=== PATIENT | female | born 1990 | race Hispanic/Latino ===

== ENCOUNTER 2024-05-25 10:34 | Day surgery (SDC) | payer MEDICAID, OTHER ==
[~2024-05-25] VITALS: Ht 165.1 cm; Wt 81.2 kg
[2024-05-25] VITALS (10 sets, daily range): BP systolic 108–116; BP diastolic 59–73; PULSE 71–80; RESP 14–17; TEMP 96.6–97.9
[~2024-05-25 10:34] MED LIST: AMOX1TAB16 PO; CYCL-309 PO; TRINTELLIX PO
[2024-05-25] MEDS: 0.9%NACL 1000ML 1,000 ML IV ONE (11:49)
[2024-05-25] MEDS ORDERED: proPOFol 10 MG/ML 20ML VIAL IV ONE ×2 (13:43→14:01)
== END 2024-05-25 15:15 | disposition home or self-care (01) ==
LOC: DAH 10:34
PROVIDERS: ATTEND Surgery
DX: K30 Functional dyspepsia (principal); K31.89 Other diseases of stomach and duodenum; K21.9 Gastro-esophageal reflux disease without esophagitis; K22.89 Other specified disease of esophagus; E66.01 Morbid (severe) obesity due to excess calories; E03.9 Hypothyroidism, unspecified; K76.0 Fatty (change of) liver, not elsewhere classified; Z98.84 Bariatric surgery status; Z90.49 Acquired absence of other specified parts of digestive tract; Z98.0 Intestinal bypass and anastomosis status; Z79.899 Other long term (current) drug therapy; Z98.890 Other specified postprocedural states
CPT/HCPCS: 81025; 43239; J7030; J3490 ×2; A4620; A4215 ×2; A4223; A4222; A4221; A4663; A4606; J2704

== ENCOUNTER 2024-07-27 06:42 | Day surgery (SDC) | payer MEDICAID ==
[~2024-07-27] VITALS: Ht 165.1 cm; Wt 83.9 kg
[2024-07-27] VITALS (11 sets, daily range): BP systolic 102–113; BP diastolic 58–74; PULSE 69–75; RESP 15–21; TEMP 97–98.2
[2024-07-27] MEDS ORDERED: 0.9%NACL 1000ML 1,000 ML IV ONE (06:49)
[2024-07-27] MEDS ORDERED: OMEP40CA21 PO (07:21)
[2024-07-27] MEDS ORDERED: SUCR1TAB2 PO (07:21)
[2024-07-27] MEDS ORDERED: FERS325 PO (07:21)
[2024-07-27] MEDS ORDERED: proPOFol 10 MG/ML 20ML VIAL IV ONE (08:07)
[2024-07-27] MEDS ORDERED: LIDOCAINE PF 100MG/5ML (2%) SYRINGE 5ML ONE (08:08)
--- NOTE | 2024-07-27 09:55 | NUR ---
Full and complete discharge instructions provided to Patient and Family. All questions answered. VU to post Procedure instructions. All questions answered. PIV removed with catheter tip intact. W/C to POV with Family.
== END 2024-07-27 10:00 | disposition home or self-care (01) ==
LOC: DAH 06:42 → ENDO 06:42
PROVIDERS: ATTEND Surgery
DX: K30 Functional dyspepsia (principal); K22.89 Other specified disease of esophagus; E66.01 Morbid (severe) obesity due to excess calories; K21.9 Gastro-esophageal reflux disease without esophagitis; Z98.84 Bariatric surgery status; Z98.0 Intestinal bypass and anastomosis status; Z90.49 Acquired absence of other specified parts of digestive tract; E03.9 Hypothyroidism, unspecified; Z68.30 Body mass index [BMI] 30.0-30.9, adult; Z79.899 Other long term (current) drug therapy
CPT/HCPCS: 81025; 43239; J7030 ×2; J2003; J3490; A4620; A4215 ×2; A4223; A4222; A4221; A4663; A4606; J2704